=== PATIENT | female | born 1970 | race Caucasian/White ===

== ENCOUNTER 2016-07-20 19:53 | Emergency (ER) | payer BC ==
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
[~2016-07-20 19:53] MED LIST: CITRACAL+D(315M1 TAB; FLEXERIL10 MG PO; LEVAQUIN 750 M750 MG PO; OSTEO BI-FLEX1 EAC1; THERA-VITE W/ B1 TAB
== END 2016-07-20 20:53 | disposition disaster alternative care site (69) ==
LOC: GACC 19:53
DX: M54.12 Radiculopathy, cervical region (principal); Z90.49 Acquired absence of other specified parts of digestive tract; Z87.442 Personal history of urinary calculi; Z87.42 Personal history of other diseases of the female genital tract; Z88.1 Allergy status to other antibiotic agents; Z88.8 Allergy status to other drugs, medicaments and biological substances
CPT/HCPCS: J1170; J7512

== ENCOUNTER 2016-07-22 16:29 | Emergency (ER) | payer BC ==
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
== END 2016-07-22 17:27 | disposition disaster alternative care site (69) ==
LOC: GMED 16:29
DX: G89.29 Other chronic pain (principal); M54.12 Radiculopathy, cervical region; Z79.899 Other long term (current) drug therapy; Z88.8 Allergy status to other drugs, medicaments and biological substances
CPT/HCPCS: J1100; J1170